=== PATIENT | female | born 1990 | race Hispanic/Latino ===

== ENCOUNTER 2017-01-18 12:57 | Emergency (ER) | payer MEDICAID ==
[2017-01-18 12:58] VITALS: BMI 33.6
[2017-01-18 13:06] VITALS: BP 103/61; PULSE 83; RESP 16; TEMP 97.4; O2SAT 100
--- NOTE | 2017-01-18 13:28 | ED PDOC ---
HPI: Female Pain Time Seen by Provider: 01/18/17 13:05 Chief Complaint (Nursing): Female Genitourinary Chief Complaint (Provider): Female Genitourinary History Per: Patient History/Exam Limitations: no limitations Onset/Duration Of Symptoms: Days (x1 day) Current Symptoms Are (Timing): Still Present Additional Complaint(s): 26 y/o female who presents to the emergency department with no physical complaint but states she was out drinking and decided to insert a tampon; currently on menstrual cycle. Reports waking up this morning and unable to remember if it still inserted or not. Denies vaginal, abdominal or pelvic pain. Has vaginal bleeding mild but on her period. No back pain, dysuria. No back pain. Past Medical History Reviewed: Historical Data, Nursing Documentation, Vital Signs Vital Signs: Last Vital Signs Temp 97.4 F L 01/18/17 13:02 Pulse 83 01/18/17 13:02 Resp 16 01/18/17 13:02 BP 103/61 01/18/17 13:02 Pulse Ox 100 01/18/17 13:02 - Medical History PMH: Asthma - Surgical History Surgical History: No Surg Hx - Family History Family History: States: Unknown Family Hx - Living Arrangements Living Arrangements: With Family - Social History Current smoker - smoking cessation education provided: No Alcohol: None Drugs: Denies - Immunization History Hx Tetanus Toxoid Vaccination: No Hx Influenza Vaccination: No Hx Pneumococcal Vaccination: No - Home Medications Home Medications: Ambulatory Orders Medication Instructions Recorded DiphenhydrAMINE [Benadryl] 25 mg PO Q6H PRN #15 cap 05/06/15 Mupirocin 1 appl TP BID #22 g 05/06/15 Birthcontrol Pills 1 tab PO DAILY 07/21/16 Famotidine [Pepcid] 20 mg PO DAILY #14 tab 07/21/16 Pantoprazole [Protonix] 40 mg PO DAILY #30 ect 12/29/16 - Allergies Allergies/Adverse Reactions: Allergies Allergy/AdvReac Type Severity Reaction Status Date / Time No Known Allergies Allergy Verified 01/18/17 13:02 Review of Systems Constitutional: Negative for: Weakness Cardiovascular: Negative for: Chest Pain Respiratory: Negative for: Shortness of Breath Gastrointestinal: Negative for: Abdominal Pain Genitourinary Female: Positive for: Vaginal Bleeding. Negative for: Vaginal Discharge, Pelvic Pain, Other (Vaginal pain) Neurological: Negative for: Weakness Physical Exam - Reviewed Nursing Documentation Reviewed: Yes Vital Signs Reviewed: Yes - Physical Exam Appears: Positive for: Non-toxic, No Acute Distress Head Exam: Positive for: ATRAUMATIC, NORMOCEPHALIC Skin: Positive for: Normal Color, Warm, Dry Cardiovascular/Chest: Positive for: Regular Rate, Rhythm. Negative for: Murmur Respiratory: Positive for: Normal Breath Sounds. Negative for: Accessory Muscle Use, Respiratory Distress Gastrointestinal/Abdominal: Positive for: Soft. Negative for: Tenderness Pelvic Exam: Positive for: External Exam Normal (pelvic exam done in presence of nurse Concepcion), No Cerv. Motion Tender, Active Bleeding (Due to present menstrual cycle), Other (no foreign body; no dc; no pain to cervix on touch) Back: Positive for: Normal Inspection. Negative for: L CVA Tenderness, R CVA Tenderness Neurologic/Psych: Positive for: Alert, Oriented - ECG O2 Sat by Pulse Oximetry: 100 (RA) Pulse Ox Interpretation: Normal - Progress ED Course And Treament: 1337: Stable. No foreign body. Fu with pcp. Medical Decision Making Medical Decision Making: Time: 13:05 --Negative vagina manual exam: no foreign bodies; does show bleeding but is on her period. Scribe Attestation: Documented by Angely Mckeon, acting as a scribe for Yousuf Guillaume MD. Provider Scribe Attestation: All medical record entries made by the Scribe were at my direction and personally dictated by me. I have reviewed the chart and agree that the record accurately reflects my personal performance of the history, physical exam, medical decision making, and the department course for this patient. I have also personally directed, reviewed, and agree with the discharge instructions and disposition. Disposition - Clinical Impression Clinical Impression: Normal menstrual period, Vaginal foreign body - Patient ED Disposition Is Patient to be Admitted: No Counseled Patient/Family Regarding: Diagnosis, Need For Followup - Disposition [facility] - 01/19/17 Disposition: Routine/Home Disposition Time: 13:38 Condition: STABLE Additional Instructions: Regular if not better in 3 days. Instructions: Menstruation (ED)
== END 2017-01-18 13:45 | disposition home or self-care (01) ==
LOC: H.ER 12:57
DX: T19.2XXA Foreign body in vulva and vagina, initial encounter (principal)

== ENCOUNTER 2017-03-19 13:43 | Emergency (ER) | payer MEDICAID, OTHER ==
--- NOTE | 2017-03-20 09:28 | RAD ---
PROCEDURE: Left elbow HISTORY: Trauma COMPARISON: March 19, 2017. TECHNIQUE: Standard protocol for this study/examination. FINDINGS: Unremarkable distal humerus, olecranon/ulna and radius -radial head. IMPRESSION: No acute findings related to/accounting for the clinical presentation.
--- NOTE | 2017-03-20 09:28 | RAD ---
PROCEDURE: Bilateral hand HISTORY: Trauma COMPARISON: None TECHNIQUE: Standard protocol for this study/examination. FINDINGS: No significant/acute osseous, articular or soft tissue abnormalities. IMPRESSION: No acute findings related to/accounting for the clinical presentation.
--- NOTE | 2017-03-20 09:28 | RAD ---
PROCEDURE: Right wrist HISTORY: Trauma COMPARISON: March 19, 2017. TECHNIQUE: Standard protocol for this study/examination. FINDINGS: No significant/acute osseous, articular or soft tissue abnormalities. IMPRESSION: No acute findings related to/accounting for the clinical presentation.
--- NOTE | 2017-03-20 14:15 | CT ---
PROCEDURE: CT Cervical Spine without contrast HISTORY: <> COMPARISON: None available. TECHNIQUE: Axial computed tomography images were obtained of the cervical spine without the use of intravenous contrast. Coronal and sagittal reformatted images were created and reviewed. Radiation dose: Total exam DLP = 457.88 mGy-cm. This CT exam was performed using one or more of the following dose reduction techniques: Automated exposure control, adjustment of the mA and/or kV according to patient size, and/or use of iterative reconstruction technique. FINDINGS: VERTEBRAE: No fracture. Normal alignment. No destructive bony lesion. DISCS/SPINAL CANAL/NEURAL FORAMINA: No significant central canal or neural foraminal stenosis. Discs heights are grossly preserved. PARASPINAL SOFT TISSUES: Unremarkable. OTHER FINDINGS: None. IMPRESSION: No significant or acute findings to account for/ related to the clinical presentation.
--- NOTE | 2017-03-20 14:15 | CT ---
PROCEDURE: CT HEAD WITHOUT CONTRAST. HISTORY: Trauma. COMPARISON: None available. TECHNIQUE: Axial computed tomography images were obtained through the head/brain without intravenous contrast. Coronal and sagittal reconstructed images. Radiation dose: Total exam DLP = 870.39 mGy-cm. This CT exam was performed using one or more of the following dose reduction techniques: Automated exposure control, adjustment of the mA and/or kV according to patient size, and/or use of iterative reconstruction technique. FINDINGS: HEMORRHAGE: No intracranial hemorrhage. BRAIN: No mass effect or edema. No atrophy or chronic microvascular ischemic changes. VENTRICLES: Unremarkable. No hydrocephalus. CALVARIUM: Unremarkable. PARANASAL SINUSES: Unremarkable as visualized. No significant inflammatory changes. MASTOID AIR CELLS: Unremarkable as visualized. No inflammatory changes. OTHER FINDINGS: None. IMPRESSION: No acute intracranial abnormalities. No significant findings to account for the clinical presentation.
== END 2017-03-19 18:00 | disposition home or self-care (01) ==
LOC: H.EDERROR 13:43 → H.ER 13:43 → H.EDERROR 18:00
DX: T14.8 Other injury of unspecified body region (principal); V19.3XXA Pedal cyclist (driver) (passenger) injured in unspecified nontraffic accident, initial encounter; Y93.9 Activity, unspecified

== ENCOUNTER 2017-04-01 10:03 | Emergency (ER) | payer OTHER ==
[2017-04-01 10:03] VITALS: BMI 33.6
[2017-04-01] MEDS ORDERED: Naproxen 500 MG TAB PO ONE ×2 (10:48→10:53)
--- NOTE | 2017-04-01 11:33 | ED PDOC ---
Lower Extremity Pain/Injury Time Seen by Provider: 04/01/17 10:15 Chief Complaint (Nursing): Lower Extremity Problem/Injury Chief Complaint (Provider): Lower Extremity Problem/Injury History Per: Patient History/Exam Limitations: no limitations Onset/Duration Of Symptoms: Hrs Current Symptoms Are (Timing): Still Present Severity: Mild Additional Complaint(s): 27 y/o female patient presenting to the ED with a swollen ankle. PT states that last night she stepped on wood and felt her ankle turn. She took Tramadol for the pain because she had some left over from a prior hospital visit. Today she PT states she is currently on no medications. PT states that over the holiday weekend she had 6 beers on thursday and 6 beers on sundays and a "couple of shots" and that she only smokes and drinks on the weekend. - Ankle/Foot Description Of Injury: Twisted (LEFT ANKLE) Currently Unable To: Bear Weight - Risk Factors DVT Risk Factors: Pos: None Past Medical History Reviewed: Historical Data, Nursing Documentation, Vital Signs Vital Signs: Last Vital Signs Temp Pulse Resp BP Pulse Ox 98 04/01/17 10:11 - Medical History PMH: Anemia, Asthma - Surgical History Surgical History: No Surg Hx - Family History Family History: States: Unknown Family Hx - Living Arrangements Living Arrangements: With Family - Social History Current smoker - smoking cessation education provided: Yes (Smokes on Weekends) Alcohol: Social (Drinks on Weekends) - Immunization History Hx Tetanus Toxoid Vaccination: No Hx Influenza Vaccination: No Hx Pneumococcal Vaccination: No - Home Medications Home Medications: Ambulatory Orders Medication Instructions Recorded DiphenhydrAMINE [Benadryl] 25 mg PO Q6H PRN #15 cap 05/06/15 Mupirocin 1 appl TP BID #22 g 05/06/15 Birthcontrol Pills 1 tab PO DAILY 07/21/16 Famotidine [Pepcid] 20 mg PO DAILY #14 tab 07/21/16 Pantoprazole [Protonix] 40 mg PO DAILY #30 ect 12/29/16 Naproxen [Naprosyn] 500 mg PO BID PRN #20 tablet 04/01/17 - Allergies Allergies/Adverse Reactions: Allergies Allergy/AdvReac Type Severity Reaction Status Date / Time No Known Allergies Allergy Verified 01/18/17 13:02 Review of Systems ROS Statement: Except As Marked, All Systems Reviewed And Found Negative Constitutional: Negative for: Fever, Weakness Cardiovascular: Negative for: Chest Pain Respiratory: Negative for: Shortness of Breath Musculoskeletal: Negative for: Foot Pain (Twisted left ankle) Neurological: Negative for: Weakness, Dizziness Physical Exam - Reviewed Nursing Documentation Reviewed: Yes Vital Signs Reviewed: Yes - Physical Exam Appears: Positive for: Non-toxic, No Acute Distress Skin: Positive for: Normal Color, Warm Cardiovascular/Chest: Positive for: Regular Rate, Rhythm. Negative for: Murmur Respiratory: Positive for: Normal Breath Sounds. Negative for: Respiratory Distress Extremity: Positive for: Normal ROM, Tenderness (Left ankle: (+) Severe Lateral Tenderness, Bruising, swelling). Negative for: Calf Tenderness, Deformity Neurologic/Psych: Positive for: Alert, Oriented. Negative for: Motor/Sensory Deficits - ECG O2 Sat by Pulse Oximetry: 98 (RA) Pulse Ox Interpretation: Normal Medical Decision Making Medical Decision Making: Time: 1040 Initial impression: Left Ankle Pain and Swelling Initial plan: --ED URINE --FOOT AP LAT LT --ACETAMINOPHEN 650MG --NAPROXEN 500MG --ANKLE LEFT 3 VIEWS Scribe Attestation: Documented by Sheila Ortega training under Coni Cox acting as a scribe for Seble Gregorio MD. Provider Scribe Attestation: All medical record entries made by the Scribe were at my direction and personally dictated by me. I have reviewed the chart and agree that the record accurately reflects my personal performance of the history, physical exam, medical decision making, and the department course for this patient. I have also personally directed, reviewed, and agree with the discharge instructions and disposition. Disposition - Clinical Impression Clinical Impression: Left ankle sprain - Patient ED Disposition Is Patient to be Admitted: No Doctor Will See Patient In The: Office Counseled Patient/Family Regarding: Diagnosis, Need For Followup, Rx Given - Disposition Referrals: [facility] [Outside] [facility] [Outside] Disposition: Routine/Home Disposition Time: 14:18 Condition: STABLE Prescriptions: Naproxen [Naprosyn] 500 mg PO BID PRN #20 tablet PRN Reason: Pain, Moderate (4-7) Instructions: Ankle Sprain (ED) - POA Present On Arrival: Falls Or Trauma
--- NOTE | 2017-04-01 14:28 | RAD ---
PROCEDURE: Left Foot Radiographs. HISTORY: sprain last night COMPARISON: None. FINDINGS: BONES: Normal. No fracture. JOINTS: Normal. SOFT TISSUES: Normal. OTHER FINDINGS: None. IMPRESSION: No acute findings related to/accounting for the clinical presentation.
--- NOTE | 2017-04-01 14:29 | RAD ---
PROCEDURE: Left Ankle Radiographs. HISTORY: sprain last night COMPARISON: None FINDINGS: BONES: No acute fracture. JOINTS: Normal. No osteoarthritis. Ankle mortise maintained. Talar dome intact SOFT TISSUES: Lateral soft tissue swelling without distal fibular or talar abnormality. OTHER FINDINGS: None. IMPRESSION: Soft tissue swelling without acute articular or osseous abnormality.
[2017-04-01 14:33] VITALS: BP 122/65; PULSE 82; RESP 14; O2SAT 100
== END 2017-04-01 14:31 | disposition home or self-care (01) ==
LOC: H.ER 10:03
DX: S93.402A Sprain of unspecified ligament of left ankle, initial encounter (principal); X50.9XXA Other and unspecified overexertion or strenuous movements or postures, initial encounter; Y92.89 Other specified places as the place of occurrence of the external cause; F17.200 Nicotine dependence, unspecified, uncomplicated; J45.909 Unspecified asthma, uncomplicated

== ENCOUNTER 2017-07-27 18:55 | Emergency (ER) | payer OTHER ==
[2017-07-27 18:55] VITALS: BMI 33.6
[2017-07-27 19:14] VITALS: BP 114/76; PULSE 83; RESP 18; TEMP 98.5; O2SAT 100
[2017-07-27] MEDS ORDERED: DiphenhydrAMINE 50 mg/ml Inj IVP STA (20:51)
--- NOTE | 2017-07-27 20:54 | ED PDOC ---
HPI: Headache Time Seen by Provider: 07/27/17 20:26 Chief Complaint (Nursing): Headache Chief Complaint (Provider): headache History Per: Patient History/Exam Limitations: no limitations Onset/Duration Of Symptoms: Days (3), Intermittent Episodes, Sudden Onset Quality: Squeezing, "Pain" Associated Symptoms: Nausea. denies: Photophobia, Blurred Vision, Vomiting, Extremity Weakness Additional Complaint(s): Sudden onset headache RIGHT sided while at rest 9am Thursday, took tramadol with some relief but recurred yesterday and then again today. Took tylenol yesterday and excedrin today. Developed severe RIGHT neck pain today as well. Has phonophobia. No fever. No recent illnesses or increased stress. PMD Dr Rousseau Past Medical History Reviewed: Historical Data, Nursing Documentation, Vital Signs Vital Signs: Last Vital Signs Temp 98.5 F 07/27/17 19:10 Pulse 83 07/27/17 19:10 Resp 18 07/27/17 19:10 BP 114/76 07/27/17 19:10 Pulse Ox 100 07/27/17 19:10 - Medical History PMH: Anemia, Asthma - Surgical History Surgical History: Tonsillectomy Other surgeries: RIGHT knee - Family History Family History: States: Other Other Family History: Cancer - Social History Current smoker - smoking cessation education provided: Yes Alcohol: Occasional Drugs: Denies - Immunization History Hx Tetanus Toxoid Vaccination: No Hx Influenza Vaccination: No Hx Pneumococcal Vaccination: No - Home Medications Home Medications: Ambulatory Orders Medication Instructions Recorded DiphenhydrAMINE [Benadryl] 25 mg PO Q6H PRN #15 cap 05/06/15 Mupirocin 1 appl TP BID #22 g 05/06/15 Birthcontrol Pills 1 tab PO DAILY 07/21/16 Famotidine [Pepcid] 20 mg PO DAILY #14 tab 07/21/16 Pantoprazole [Protonix] 40 mg PO DAILY #30 ect 12/29/16 Naproxen [Naprosyn] 500 mg PO BID PRN #20 tablet 04/01/17 Metoclopramide [Reglan] 1 tab PO TID PRN #15 tab 07/28/17 Naproxen [Naprosyn] 1 tab PO BID PRN #30 tab 07/28/17 - Allergies Allergies/Adverse Reactions: Allergies Allergy/AdvReac Type Severity Reaction Status Date / Time No Known Allergies Allergy Verified 01/18/17 13:02 Review of Systems ROS Statement: Except As Marked, All Systems Reviewed And Found Negative (and as per HPI) Constitutional: Positive for: Weakness, Malaise. Negative for: Fever, Chills Eyes: Negative for: Vision Change Cardiovascular: Positive for: Light Headedness Gastrointestinal: Positive for: Nausea. Negative for: Vomiting, Abdominal Pain Musculoskeletal: Positive for: Neck Pain. Negative for: Shoulder Pain Neurological: Positive for: Headache, Dizziness Physical Exam - Physical Exam Appears: Positive for: Non-toxic, In Acute Distress (mild painful) Head Exam: Positive for: ATRAUMATIC, NORMOCEPHALIC Skin: Positive for: Warm, Dry Eye Exam: Positive for: EOMI, PERRL. Negative for: Nystagmus ENT: Negative for: Pharyngeal Erythema, Tonsillar Exudate Neck: Positive for: Supple (no meningismus but has RIGHT sided paraspinal/ trapezoid ttp) Cardiovascular/Chest: Positive for: Regular Rate, Rhythm, Chest Non Tender. Negative for: Murmur Respiratory: Positive for: Normal Breath Sounds. Negative for: Wheezing Gastrointestinal/Abdominal: Positive for: Soft. Negative for: Tenderness, Mass , Distended, Guarding Back: Positive for: Normal Inspection. Negative for: Decreased ROM Extremity: Positive for: Normal ROM. Negative for: Deformity Lymphatic: Negative for: Adenopathy Neurologic/Psych: Positive for: Alert, health information tech II-XII (intact), Oriented (x3), Cerebellar Tests (normal). Negative for: Motor/Sensory Deficits, Aphasia, Facial Droop - Laboratory Results Result Diagrams: 07/27/17 21:38 07/27/17 21:38 - ECG O2 Sat by Pulse Oximetry: 100 Pulse Ox Interpretation: Normal Medical Decision Making Medical Decision Making: EXAM: CT Head Without Intravenous Contrast CLINICAL HISTORY: 27 years old, female; Pain; Headache; Other: Right sided headache, ; additional info: Headache nausea right sided. Sent phy. Doc. TECHNIQUE: Axial computed tomography images of the head/brain without intravenous contrast. All CT scans at this facility use one or more dose reduction techniques, viz.: automated exposure control; ma/kV adjustment per patient size (including targeted exams where dose is matched to indication; i.e. head); or iterative reconstruction technique. Coronal and sagittal reformatted images were created and reviewed. COMPARISON: No relevant prior studies available. FINDINGS: Brain: No intracranial hemorrhage. No mass. No definite edema. Ventricles: No hydrocephalus. Bones/joints: No acute fracture. Soft tissues: Unremarkable. Sinuses: Scattered mild mucosal thickening of ethmoid sinuses. Mastoid air cells: No mastoid effusion. Orbits: Unremarkable as visualized. IMPRESSION: 1. No acute intracranial abnormality. 2. Incidental/non-acute findings are described above. Thank you for allowing us to participate in the care of your patient. Dictated and Authenticated by: Brody Núñez MD 07/27/2017 10:01 PM Eastern Time ([place] & [place]) [facility] Final Radiology Report Call: [phone] assistance Online chat: [email or web address] Patient Name: MARTHA MOSQUEDA (Age): 1990 27 Gender: F Date of Exam: 07/27/2017 Referring Physician: Sabiha Castillo # of Images: [id number] Ordered As: CTA HEAD NECK BUNDLE Page 1 of 3 EXAM: CT Angiography Head Without and With Intravenous Contrast CLINICAL HISTORY: 27 years old, female; Pain; Headache; Additional info: Headache severe with neck pain TECHNIQUE: Axial computed tomographic angiography images of the head without and with intravenous contrast using CT angiography protocol. All CT scans at this facility use one or more dose reduction techniques, viz.: automated exposure control; ma/kV adjustment per patient size (including targeted exams where dose is matched to indication; i.e. head); or iterative reconstruction technique. MIP reconstructed images were created and reviewed. Coronal and sagittal reformatted images were created and reviewed. CONTRAST: 95 mL of visipqae administered intravenously. COMPARISON: No relevant prior studies available. FINDINGS: VASCULATURE: Right internal carotid artery: No acute findings. Intracranial segment is patent with no significant stenosis. No aneurysm. Right anterior cerebral artery: Unremarkable. No occlusion or significant stenosis. No aneurysm. Right middle cerebral artery: Unremarkable. No occlusion or significant stenosis. No aneurysm. Right posterior cerebral artery: Unremarkable. No occlusion or significant stenosis. No aneurysm. Right vertebral artery: Unremarkable as visualized. Left internal carotid artery: No acute findings. Intracranial segment is patent with no significant stenosis. No aneurysm. Left anterior cerebral artery: Unremarkable. No occlusion or significant stenosis. No aneurysm. Left middle cerebral artery: Unremarkable. No occlusion or significant stenosis. No aneurysm. Left posterior cerebral artery: Unremarkable. No occlusion or significant stenosis. No aneurysm. Left vertebral artery: Unremarkable as visualized. Basilar artery: Unremarkable. No occlusion or significant stenosis. No aneurysm. HEAD: Brain: No acute findings. No hemorrhage. No edema. Normal enhancement. Ventricles: Unremarkable. No ventriculomegaly. Bones/joints: No acute fracture. Soft tissues: Unremarkable. Sinuses: Unremarkable as visualized. No acute sinusitis. Mastoid air cells: Unremarkable as visualized. No mastoid effusion. IMPRESSION: Normal head CTA. EXAM: CT Angiography Neck With Intravenous Contrast CLINICAL HISTORY: 27 years old, female; Pain; Headache; Additional info: Headache severe with neck pain TECHNIQUE: Axial computed tomographic angiography images of the neck with intravenous contrast using CT angiography protocol. All CT scans at this facility use one or more dose reduction techniques, viz.: automated exposure control; ma/kV adjustment per patient size (including targeted exams where dose is matched to indication; i.e. head); or iterative reconstruction technique. MIP reconstructed images were created and reviewed. Coronal and sagittal reformatted images were created and reviewed. CONTRAST: 95 mL of visipqae administered intravenously. COMPARISON: CT - HEAD W/O CONTRAST 07/27/2017 9:47:15 PM FINDINGS: VASCULATURE: Right common carotid artery: Unremarkable. No significant stenosis. No dissection or occlusion. Right internal carotid artery: Unremarkable. Extracranial segment is patent with no significant stenosis. No dissection or occlusion. Right external carotid artery: Unremarkable. No occlusion. Right vertebral artery: Unremarkable. No significant stenosis. No dissection or occlusion. Left common carotid artery: Unremarkable. No significant stenosis. No dissection or occlusion. Left internal carotid artery: Unremarkable. Extracranial segment is patent with no significant stenosis. No dissection or occlusion. Left external carotid artery: Unremarkable. No occlusion. Left vertebral artery: Unremarkable. No significant stenosis. No dissection or occlusion. NECK: Bones/joints: No acute fracture. No dislocation. Soft tissues: Unremarkable as visualized. No mass. CAROTID STENOSIS REFERENCE USING NASCET CRITERIA: % ICA stenosis = (1 - narrowest ICA diameter/diameter of distal cervical ICA) x 100. Mild - <50% stenosis. Moderate - 50-69% stenosis. Severe - 70-94% stenosis. Near occlusion - 95-99% stenosis. Occluded - 100% stenosis. IMPRESSION: Normal neck CTA. Thank you for allowing us to participate in the care of your patient. Dictated and Authenticated by: Martha Cash MD 07/28/2017 12:01 AM Eastern Time ([place] & [place]) 12am Pt feels better s/p meds Headache workup with no emergently significant abnormalities. Stable for outpatient follow up. Scribe Attestation: Documented by Judy Barnes, acting as a scribe for *Sabiha Castillo MD. Provider Scribe Attestation: All medical record entries made by the Scribe were at my direction and personally dictated by me. I have reviewed the chart and agree that the record accurately reflects my personal performance of the history, physical exam, medical decision making, and the department course for this patient. I have also personally directed, reviewed, and agree with the discharge instructions and disposition. Disposition - Clinical Impression Clinical Impression: Headache - Disposition Referrals: Anival Geurin MD [Staff Provider] - Disposition: Routine/Home Disposition Time: 00:00 Condition: IMPROVED Additional Instructions: FOLLOW UP WITH PMD IN 1-2 DAYS FOR REEVALUATION AND REFERRAL FOR NEUROLOGIST. Prescriptions: Metoclopramide [Reglan] 1 tab PO TID PRN #15 tab PRN Reason: Nausea/Vomiting Naproxen [Naprosyn] 1 tab PO BID PRN #30 tab PRN Reason: Pain Instructions: General Headache (ED) Forms: [facility] ED School/Work Excuse
[2017-07-27 21:50] LABS: BASO % 0.3 % (0.0-2.0); EOS # 0.4 K/uL (0.0-0.7); EOS % 4.2 % (0.0-4.0); HEMATOCRIT 37.5 % (34.0-47.0); LYMPH # 3.4 K/uL (1.0-4.3); LYMPH % 38.5 % (20.0-40.0); MEAN CELL VOLUME 87.1 fl (81.0-99.0); MEAN CORPUSCULAR HEMOGLOBIN 28.7 pg (27.0-31.0); MEAN PLATELET VOLUME 9.7 fl (7.2-11.7); MONO # 0.6 K/uL (0.0-0.8); NEUT # 4.5 K/uL (1.8-7.0); NRBC % 0.1 % (0.0-0.0); RED CELL DISTRIBUTION WIDTH 13.8 % (11.5-14.5); WHITE BLOOD COUNT 8.9 K/uL (4.8-10.8)
[2017-07-27 21:57] LABS: PARTIAL THROMBOPLASTIN TIME 24.4 Seconds (25.6-37.1)
[2017-07-27 22:00] LABS: ALB/GLOB RATIO 1.4 (1.0-2.1); ALKALINE PHOSPHATASE 51 U/L (38-126); ALT/SGPT 26 U/L (9-52); AST/SGOT 24 U/L (14-36); BILIRUBIN,TOTAL 0.4 mg/dl (0.2-1.3); BLOOD UREA NITROGEN 16 mg/dl (7-17); CALCIUM 8.9 mg/dL (8.4-10.2); CARBON DIOXIDE 23 mmol/L (22-30); CHLORIDE 103 mmol/L (98-107); GFR AFRICAN-AMERICAN > 60; GLUCOSE,RANDOM 98 mg/dL (65-105); MAGNESIUM 1.9 MG/DL (1.6-2.3); PHOSPHOROUS 3.8 mg/dl (2.5-4.5); POTASSIUM 4.2 MMOL/L (3.6-5.0); SODIUM 139 mmol/l (132-148); TOTAL PROTEIN 6.8 G/DL (6.3-8.2)
--- NOTE | 2017-07-27 22:02 | CT ---
EXAM: CT Head Without Intravenous Contrast CLINICAL HISTORY: 27 years old, female; Pain; Headache; Other: Right sided headache, ; additional info: Headache nausea right sided. Sent phy. Doc. TECHNIQUE: Axial computed tomography images of the head/brain without intravenous contrast. All CT scans at this facility use one or more dose reduction techniques, viz.: automated exposure control; ma/kV adjustment per patient size (including targeted exams where dose is matched to indication; i.e. head); or iterative reconstruction technique. Coronal and sagittal reformatted images were created and reviewed. COMPARISON: No relevant prior studies available. FINDINGS: Brain: No intracranial hemorrhage. No mass. No definite edema. Ventricles: No hydrocephalus. Bones/joints: No acute fracture. Soft tissues: Unremarkable. Sinuses: Scattered mild mucosal thickening of ethmoid sinuses. Mastoid air cells: No mastoid effusion. Orbits: Unremarkable as visualized. IMPRESSION: 1. No acute intracranial abnormality. 2. Incidental/non-acute findings are described above.
[2017-07-27] MEDS ORDERED: DiphenhydrAMINE 50 mg/ml Inj ONE (22:27)
[2017-07-27] MEDS ORDERED: Sodium Chloride 0.9% 50 ML IV ONE (23:04)
[2017-07-27] MEDS ORDERED: Iodixanol 320 MG/ML 100 ML BOTTLE IV ONE (23:04)
--- NOTE | 2017-07-28 08:41 | CT ---
PROCEDURE: CT Angiography of the HEAD and NECK with contrast HISTORY: headache severe with neck pain COMPARISON: None available. TECHNIQUE: Contiguous axial images of the neck were obtained from the level of the skull-base to the superior mediastinum in the arteriographic phase of enhancement. Coronal and sagittal reformats or also generated. IV contrast dose: Visipaque 320, 195 cc Radiation Dose - DLP: 2120.11 mGy-cm This CT exam was performed using one or more of the following dose reduction techniques: Automated exposure control, adjustment of the mA and/or kV according to patient size, and/or use of iterative reconstruction technique. FINDINGS: MAJOR INTRACRANIAL ARTERIAL CIRCULATION: INTERNAL CEREBRAL INTERNAL CEREBRAL ARTERIES: The bilateral internal carotid arteries appear widely patent through the skullbase including the cavernous segments. The intracranial segments appear widely patent as well. The bilateral mid anterior, middle and posterior cerebral arteries appear widely patent including the primary secondary and tertiary branches including those through the Sylvian fissures grossly. The anterior and bilateral posterior communicating arteries are patent. The vertebrobasilar basilar system appears widely patent and appears left vertebral dominant. No aneurysm or arteriovascular malformation is identified throughout. RIGHT CAROTID ARTERIES: Common Carotid Artery: Normal. Carotid Bifurcation: Normal. Internal Carotid Artery:Normal. External Carotid Artery (proximal branches): Normal. LEFT CAROTID ARTERIES: Common Carotid Artery: Normal. Carotid Bifurcation: Normal. Internal Carotid Artery:Normal. External Carotid Artery (proximal branches): Normal. VERTEBRAL ARTERIES: Right Vertebral Artery: Normal. Left Vertebral Artery: Normal. OTHER FINDINGS: None. IMPRESSION: Normal CT Angiography of the head and neck. Concordant report from [facility], 07/28/2017.
== END 2017-07-28 00:20 | disposition home or self-care (01) ==
LOC: H.ER 18:55
DX: R51 Headache (principal); R11.0 Nausea
CPT/HCPCS: 70450; 70496; 70498; 80053; 81025; 83735; 84100; 85025; 85610; 85730; 86850; 86900; 96374; 96375; 99285; J1200; J2765; Q9967

== ENCOUNTER 2018-05-04 16:04 | Inpatient (IN) | payer MEDICAID, OTHER ==
[2018-05-04 16:04] VITALS: BMI 33.6
[2018-05-04] MEDS ORDERED: Sodium Chloride 0.9% 1,000 ML IV STA (16:41)
[2018-05-04] MEDS ORDERED: Morphine 4 MG/ML VIAL IV STA (16:54)
[2018-05-04 17:19] LABS: BASO % 0.3 % (0.0-2.0); EOS # 0.2 K/uL (0.0-0.7); EOS % 1.3 % (0.0-4.0); LYMPH # 2.1 K/uL (1.0-4.3); LYMPH % 17.8 % (20.0-40.0); MEAN CELL VOLUME 82.1 fl (81.0-99.0); MEAN CORPUSCULAR HEMOGLOBIN 26.7 pg (27.0-31.0); MEAN CORPUSCULAR HGB CONC 32.6 g/dL (33.0-37.0); MEAN PLATELET VOLUME 11.7 fl (7.2-11.7); MONO # 1.1 K/uL (0.0-0.8); MONO % 8.8 % (0.0-10.0); NEUT # 8.6 K/uL (1.8-7.0); NEUT % 71.8 % (50.0-75.0); NRBC % 0.1 % (0.0-0.0); RBC 4.48 Mil/uL (3.80-5.20); RED CELL DISTRIBUTION WIDTH 14.1 % (11.5-14.5)
[2018-05-04] MEDS ORDERED: Barium Sulfate Susp 2.1% w/v, 2.0% w/w 450 mL Bottle PO ONE ×3 (17:30→17:54)
[2018-05-04 17:33] LABS: ALB/GLOB RATIO 1.2 (1.0-2.1); ALT/SGPT 96 U/L (9-52); AST/SGOT 101 U/L (14-36); BLOOD UREA NITROGEN 12 mg/dl (7-17); CALCIUM 9.2 mg/dL (8.4-10.2); GFR AFRICAN-AMERICAN > 60; GFR NON-AFRICAN AMERICAN > 60; LIPASE 233 U/L (23-300)
--- NOTE | 2018-05-04 19:35 | ED PDOC ---
HPI: Abdomen Time Seen by Provider: 05/04/18 16:25 Chief Complaint (Nursing): Abdominal Pain Chief Complaint (Provider): LUQ pain x 4 hours History Per: Patient History/Exam Limitations: no limitations Onset/Duration Of Symptoms: Hrs Outside of [place] travel?: No Current Symptoms Are (Timing): Still Present Severity: Severe Pain Scale Rating Of: 10 Location Of Pain/Discomfort: LUQ Quality Of Discomfort: Sharp Associated Symptoms: Nausea, Loss Of Appetite. denies: Fever, Chills, Vomiting , Diarrhea, Constipation, Urinary Symptoms Exacerbating Factors: None Alleviating Factors: None Additional Complaint(s): 28 yo female with history of gastric sleeve on 04/20/18 presents with LUQ pain for 4 hours. Pt states she was no longer having pain from the surgery and began having dull pain this morning. PT states the pain became worse. Pt had surgery in [facility]. PT states she called her doctor and was told to go to the same hospital for evaluation but [place] Pt states that she did see her surgeon 4 days ago for post-op appointment. Past Medical History Vital Signs: Last Vital Signs Temp 99.2 F 05/04/18 16:14 Pulse 96 H 05/04/18 16:14 Resp 16 05/04/18 16:14 BP 132/71 05/04/18 16:14 Pulse Ox 98 05/04/18 19:35 - Medical History PMH: Anemia, Anxiety, Asthma - Surgical History Surgical History: Tonsillectomy - Family History Family History: States: Unknown Family Hx - Immunization History Hx Tetanus Toxoid Vaccination: No Hx Influenza Vaccination: No Hx Pneumococcal Vaccination: No - Home Medications Home Medications: Ambulatory Orders Medication Instructions Recorded Birthcontrol Pills 1 tab PO DAILY 07/21/16 Azithromycin [Zithromax] 250 mg PO DAILY #4 tab 01/29/18 - Allergies Allergies/Adverse Reactions: Allergies Allergy/AdvReac Type Severity Reaction Status Date / Time Iodinated Contrast- Oral and Allergy RASH Verified 05/04/18 16:18 IV Dye - Laboratory Results Result Diagrams: 05/04/18 17:15 05/04/18 17:15 - ECG O2 Sat by Pulse Oximetry: 98 Medical Decision Making Medical Decision Making: slight elevation of WBC. Urine normal. Endorse pending CT of the abd/pelvis. Disposition - Clinical Impression Clinical Impression: Abdominal pain - Patient ED Disposition Is Patient to be Admitted: Transfer of Care - Disposition Disposition: Transfer of Care Disposition Time: 20:09 Condition: STABLE Forms: [employer] (Slovenian)
--- NOTE | 2018-05-04 21:24 | ED PDOC ---
- Laboratory Results Result Diagrams: 05/04/18 17:15 05/04/18 17:15 - ECG O2 Sat by Pulse Oximetry: 98 Medical Decision Making Medical Decision Making: Case endorsed to me from SIMI Canela pending CT and disposition at 1999. CT A/P : FINDINGS: Lung bases: Unremarkable. No mass. No consolidation. ABDOMEN: Liver: Unremarkable. Gallbladder and bile ducts: Unremarkable. No calcified stones. No ductal dilation. Pancreas: Peripancreatic inflammatory in the pancreatic tail. No CT evidence of necrosis, pancreatic ductal dilation or walled off fluid collection. Spleen: Mild splenomegaly measures 13 cm. Adrenals: Unremarkable. No mass. Kidneys and ureters: Unremarkable. No obstructing stones. No hydronephrosis. Stomach and bowel: Sleeve gastrectomy. No obstruction. PELVIS: Appendix: No findings to suggest acute appendicitis. Bladder: Unremarkable. No stones. Reproductive: Unremarkable as visualized. ABDOMEN and PELVIS: Intraperitoneal space: Unremarkable. No free air. No significant fluid collection. Bones/joints: No acute fracture. No dislocation. Soft tissues: Unremarkable. Vasculature: Unremarkable. No abdominal aortic aneurysm. Lymph nodes: Unremarkable. No enlarged lymph nodes. IMPRESSION: 1. Acute pancreatitis of the pancreatic tail. 2. Mild splenomegaly measures 13 cm. Dictated and Authenticated by: Robbi Marie MD 05/04/2018 8:12 PM Eastern Time ([place] & Paul CT results d/w the patient. On re-evaluation, patient reports improvement of pain at this time, denies any nausea. On exam, patient remains AAOx3, in no acute distress. Diagnosis of acute pancreatitis d/w the patient. Based on history, exam and diagnostic results, plan will be for inpatient admission. Patient states she fully agrees with and understands further plan and care. I have given the patient opportunity to ask any additional questions. Case d/w Dr. Goodrich, will admit the patient. Request consult with GI talent acquisition program manager, Dr. Ríos. Bridge orders and consults placed. Disposition Counseled Patient/Family Regarding: Studies Performed, Diagnosis - Clinical Impression Clinical Impression: Abdominal pain, Acute pancreatitis - POA Present On Arrival: None - Disposition Disposition: Admitted as In-Patient Disposition Time: 21:15 Condition: STABLE - PA / LAND ECONOMIST / Resident Statement MD/DO has reviewed & agrees with the documentation as recorded.
[2018-05-04] MEDS ORDERED: Morphine 4 MG/ML VIAL IVP STA (22:38)
[2018-05-05 06:14] LABS: HEMOGLOBIN 10.7 g/dL (12.0-16.0); MEAN CELL VOLUME 80.5 fl (81.0-99.0); MEAN CORPUSCULAR HEMOGLOBIN 27.5 pg (27.0-31.0); MEAN CORPUSCULAR HGB CONC 34.2 g/dL (33.0-37.0); RBC 3.9 Mil/uL (3.80-5.20); RED CELL DISTRIBUTION WIDTH 13.8 % (11.5-14.5); WHITE BLOOD COUNT 7.8 K/uL (4.8-10.8)
[2018-05-05 06:20] LABS: INR 1.1 (0.9-1.2); PARTIAL THROMBOPLASTIN TIME 24.1 Seconds (25.6-37.1); PROTHROMBIN TIME 12.2 Seconds (9.8-13.1)
[2018-05-05 06:30] LABS: ALBUMIN 3.1 g/dL (3.5-5.0); ALT/SGPT 115 U/L (9-52); AMYLASE 59 U/L (30-110); AST/SGOT 110 U/L (14-36); BLOOD UREA NITROGEN 6 mg/dl (7-17); CALCIUM 8.2 mg/dL (8.4-10.2); GFR AFRICAN-AMERICAN > 60; GFR NON-AFRICAN AMERICAN > 60; HDL CHOLESTEROL 38 MG/DL (30-70); LIPASE 110 U/L (23-300)
[2018-05-05 06:35] LABS: LDL CHOLESTEROL 44 mg/dL (0-129)
--- NOTE | 2018-05-05 08:16 | CP.PCM.CON ---
<Joe Khan - Last Filed: 05/05/18 15:02> History of Present Illness - History of Present Illness History of Present Illness: PGY4 Initial GI Consult Note Martha Thompson is a 28F w/ hx of obesity s/p gastric sleeve (04/20/18) who presented to the Er with complaints of epigastic and LUQ pain. Pt states that the pain initially presented as B/L upper back pain,1 week prior. She notes that he was achy and was initially 5/10. She notes that the pain progressively worsen and then radiated to the front. She notes that prior to admission her pain was 10 out of 10. She called her bariatric RN who recommend acetomenophen. Pt denies any nausea or vomiting, but admits to worsening of pain after consuming protein shake. CT of the abd w/o IV contrast in the ER revealed some pancreatic inflammation in in the tail of the pancreas. She notes that her pain has improved overnight. Denies any hx of ETOH, TG, or gallstones. Denies any previous episodes of pancreatitis. PMHX: obesity PSHx: right knee MCL repair, lipoma back removed Social hx: denies ETOH, smoking, or illicit drug Family Hx: father colon cancer 43 Endohx: EGD 2018: no findings; colonoscopy 2017: internal hemorrhoids ROS: 12 point ROS conducted, neg other than above Past Patient History - Past Medical History & Family History Past Medical History?: Yes - Past Social History Smoking Status: Never Smoked - PULMONARY Hx Asthma: Yes - HEMATOLOGICAL/ONCOLOGICAL Hx Anemia: Yes - MUSCULOSKELETAL/RHEUMATOLOGICAL Hx Musculoskeletal Disorders: Yes (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 [facility] Dr. Aram Lopez - PSYCHIATRIC Hx Anxiety: Yes Hx Substance Use: No - SURGICAL HISTORY Hx Surgeries: Yes Hx Tonsillectomy: Yes - ANESTHESIA Hx Anesthesia: Yes Hx Anesthesia Reactions: No Hx Malignant Hyperthermia: No Meds Allergies/Adverse Reactions: Allergies Allergy/AdvReac Type Severity Reaction Status Date / Time Iodinated Contrast- Oral and Allergy RASH Verified 05/04/18 16:18 IV Dye - Medications Medications: Current Medications Dextrose/Sodium Chloride (Dextrose 5%/0.45% Ns 1000 Ml) 1,000 mls @ 100 mls/hr IV .Q10H [facility] Stop: 05/05/18 23:19 Last Admin: 05/05/18 00:00 Dose: 100 mls/hr Morphine Sulfate (Morphine) 2 mg IVP Q4 PRN PRN Reason: Pain, moderate (4-7) Last Admin: 05/05/18 02:16 Dose: 2 mg Pantoprazole Sodium (Protonix Inj) 40 mg IVP DAILY [facility] Physical Exam - Constitutional Appears: Well, No Acute Distress - Head Exam Head Exam: ATRAUMATIC, NORMOCEPHALIC - Eye Exam Eye Exam: Normal appearance - ENT Exam ENT Exam: Mucous Membranes Moist, Normal Exam - Respiratory Exam Respiratory Exam: Clear to Auscultation Bilateral, NORMAL BREATHING PATTERN. absent: Rales, Rhonchi, Wheezes, Respiratory Distress - Cardiovascular Exam Cardiovascular Exam: REGULAR RHYTHM, +S1, +S2 - GI/Abdominal Exam GI & Abdominal Exam: Normal Bowel Sounds, Soft. absent: Organomegaly, Rebound, Rigid, Tenderness - Extremities Exam Extremities exam: Negative for: joint swelling, pedal edema - Neurological Exam Neurological exam: Alert, Oriented x3 - Psychiatric Exam Psychiatric exam: Normal Affect, Normal Mood - Skin Skin Exam: Dry, Intact, Normal Color, Warm Results - Vital Signs Recent Vital Signs: Last Vital Signs Temp 98.2 F 05/04/18 23:30 Pulse 86 05/04/18 23:30 Resp 14 05/04/18 23:33 BP 95/62 L 05/04/18 23:30 Pulse Ox 98 05/04/18 23:36 - Labs Result Diagrams: 05/05/18 05:30 05/05/18 05:30 Labs: Laboratory Results - last 24 hr 05/04/18 05/04/18 05/05/18 17:15 17:15 05:30 WBC 12.0 H 7.8 RBC 4.48 3.90 Hgb 12.0 10.7 L Hct 36.7 31.4 L MCV 82.1 D 80.5 L MCH 26.7 L 27.5 MCHC 32.6 L 34.2 RDW 14.1 13.8 Plt Count 203 185 MPV 11.7 Neut % (Auto) 71.8 Lymph % (Auto) 17.8 L Mclennan % (Auto) 8.8 Eos % (Auto) 1.3 Baso % (Auto) 0.3 Neut # (Auto) 8.6 H Lymph # (Auto) 2.1 Mclennan # (Auto) 1.1 H Eos # (Auto) 0.2 Baso # (Auto) 0.0 PT INR APTT Sodium 138 Potassium 3.9 Chloride 100 Carbon Dioxide 22 Anion Gap 20 BUN 12 Creatinine 0.6 L Est GFR ( Amer) > 60 Est GFR (Non-Af Amer) > 60 Random Glucose 79 Calcium 9.2 Total Bilirubin 0.6 AST 101 H D ALT 96 H D Alkaline Phosphatase 104 Total Protein 7.5 Albumin 4.0 Globulin 3.4 Albumin/Globulin Ratio 1.2 Triglycerides Cholesterol LDL Cholesterol Direct HDL Cholesterol Amylase Lipase 233 05/05/18 05/05/18 05:30 05:30 WBC RBC Hgb Hct MCV MCH MCHC RDW Plt Count MPV Neut % (Auto) Lymph % (Auto) Mclennan % (Auto) Eos % (Auto) Baso % (Auto) Neut # (Auto) Lymph # (Auto) Mclennan # (Auto) Eos # (Auto) Baso # (Auto) PT 12.2 INR 1.1 APTT 24.1 L Sodium 138 Potassium 3.2 L Chloride 104 Carbon Dioxide 25 Anion Gap 12 BUN 6 L Creatinine 0.5 L Est GFR ( Amer) > 60 Est GFR (Non-Af Amer) > 60 Random Glucose 123 H Calcium 8.2 L Total Bilirubin 0.4 AST 110 H ALT 115 H Alkaline Phosphatase 76 Total Protein 6.1 L Albumin 3.1 L D Globulin 3.0 Albumin/Globulin Ratio 1.0 Triglycerides 118 Cholesterol 117 LDL Cholesterol Direct 44 HDL Cholesterol 38 Amylase 59 Lipase 110 Assessment & Plan - Assessment and Plan (Free Text) Assessment: Martha Thompson is a 28F w/ hx of obesity who presented to the ER for abd pain Acute pancreatitis; etiology unknown, DDx: s/p bariatric surgery; r/o gallstonesm 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 Ríos <[email or web address] - Last Filed: 05/05/18 15:37> Meds - Medications Medications: Current Medications Dextrose/Sodium Chloride (Dextrose 5%/0.45% Ns 1000 Ml) 1,000 mls @ 100 mls/hr IV .Q10H [facility] Stop: 05/05/18 23:19 Last Admin: 05/05/18 11:17 Dose: 100 mls/hr Lactated Ringer's (Lactated Ringer's) 1,000 mls @ 250 mls/hr IV .Q4H [facility] Last Admin: 05/05/18 11:00 Dose: 250 mls/hr Morphine Sulfate (Morphine) 2 mg IVP Q4 PRN PRN Reason: Pain, moderate (4-7) Last Admin: 05/05/18 02:16 Dose: 2 mg Ondansetron HCl (Zofran Inj) 4 mg IVP Q6 PRN PRN Reason: Nausea/Vomiting Last Admin: 05/05/18 11:27 Dose: 4 mg Pantoprazole Sodium (Protonix Inj) 40 mg IVP DAILY [facility] Last Admin: 05/05/18 09:37 Dose: 40 mg Results - Vital Signs Recent Vital Signs: Last Vital Signs Temp 98 F 05/05/18 08:31 Pulse 96 H 05/05/18 08:31 Resp 20 05/05/18 08:31 BP 100/63 05/05/18 08:31 Pulse Ox 97 05/05/18 08:31 - Labs Result Diagrams: 05/05/18 05:30 05/05/18 05:30 Labs: Laboratory Results - last 24 hr 05/04/18 05/04/18 05/05/18 17:15 17:15 05:30 WBC 12.0 H 7.8 RBC 4.48 3.90 Hgb 12.0 10.7 L Hct 36.7 31.4 L MCV 82.1 D 80.5 L MCH 26.7 L 27.5 MCHC 32.6 L 34.2 RDW 14.1 13.8 Plt Count 203 185 MPV 11.7 Neut % (Auto) 71.8 Lymph % (Auto) 17.8 L Mclennan % (Auto) 8.8 Eos % (Auto) 1.3 Baso % (Auto) 0.3 Neut # (Auto) 8.6 H Lymph # (Auto) 2.1 Mclennan # (Auto) 1.1 H Eos # (Auto) 0.2 Baso # (Auto) 0.0 PT INR APTT Sodium 138 Potassium 3.9 Chloride 100 Carbon Dioxide 22 Anion Gap 20 BUN 12 Creatinine 0.6 L Est GFR ( Amer) > 60 Est GFR (Non-Af Amer) > 60 Random Glucose 79 Calcium 9.2 Total Bilirubin 0.6 AST 101 H D ALT 96 H D Alkaline Phosphatase 104 Total Protein 7.5 Albumin 4.0 Globulin 3.4 Albumin/Globulin Ratio 1.2 Triglycerides Cholesterol LDL Cholesterol Direct HDL Cholesterol Amylase Lipase 233 IgG 05/05/18 05/05/18 05/05/18 05:30 05:30 09:14 WBC RBC Hgb Hct MCV MCH MCHC RDW Plt Count MPV Neut % (Auto) Lymph % (Auto) Mclennan % (Auto) Eos % (Auto) Baso % (Auto) Neut # (Auto) Lymph # (Auto) Mclennan # (Auto) Eos # (Auto) Baso # (Auto) PT 12.2 INR 1.1 APTT 24.1 L Sodium 138 Potassium 3.2 L Chloride 104 Carbon Dioxide 25 Anion Gap 12 BUN 6 L Creatinine 0.5 L Est GFR ( Amer) > 60 Est GFR (Non-Af Amer) > 60 Random Glucose 123 H Calcium 8.2 L Total Bilirubin 0.4 AST 110 H ALT 115 H Alkaline Phosphatase 76 Total Protein 6.1 L Albumin 3.1 L D Globulin 3.0 Albumin/Globulin Ratio 1.0 Triglycerides 118 Cholesterol 117 LDL Cholesterol Direct 44 HDL Cholesterol 38 Amylase 59 Lipase 110 IgG 680.5 L Attending/Attestation - Attestation I have personally seen and examined this patient.: Yes I have fully participated in the care of the patient.: Yes I have reviewed all pertinent clinical information: Yes Notes (Text): 05/05/18 15:32 This is a 28 year old F with history of obesity s/p bariatric surgery two weeks ago with gastric sleeve who presented to the ER for abdominal pain and found to have acute pancreatitis. On D5 100 cc/hr IVf which will be changed to RL 250 cc/ hr. No gallstones on sonogram. Start clear liquid diet today and DVt prophylaxis. Needs to follow with bariatric surgeon once discharged. CT reviewed. Low fat diet as tolerated. Follow triglyceride levels.
--- NOTE | 2018-05-05 09:42 | CT ---
PROCEDURE: CT Abdomen and Pelvis without contrast. HISTORY: left sided pain, gastric sleeve 04/20 COMPARISON: None. TECHNIQUE: Contiguous axial images of the abdomen and pelvis. No IV or oral contrast given. Coronal and Sagittal reformats generated. Please note that due to lack of intravenous and oral contrast, evaluation of soft tissue structures and bowel is limited. Radiation dose: Total exam DLP = 943.16 mGy-cm. This CT exam was performed using one or more of the following dose reduction techniques: Automated exposure control, adjustment of the mA and/or kV according to patient size, and/or use of iterative reconstruction technique. FINDINGS: LOWER THORAX: 3 millimeter nodule in the left lower lobe (image 4, series 2. LIVER: Grossly unremarkable on this noncontrast CT. GALLBLADDER AND BILE DUCTS: Unremarkable. PANCREAS: Soft tissue stranding surrounding the pancreatic tail. Underlying pancreatitis/ pancreatic inflammation cannot be entirely excluded. SPLEEN: Mild splenomegaly. ADRENALS: Unremarkable. KIDNEYS AND URETERS: Unremarkable. No stone or hydronephrosis. BLADDER: Limited evaluation due to underdistention. REPRODUCTIVE: Please note that evaluation of gynecologic organs is not optimal on CT imaging. APPENDIX: Unremarkable. BOWEL: No bowel obstruction. Mild thickening of the stomach antrum could be due to underdistention. Surgical clips surrounding the greater curvature of the stomach noted. PERITONEUM: Foci of free air is noted in the peritoneum. LYMPH NODES: Unremarkable. No enlarged lymph nodes. VASCULATURE: Unremarkable. No aortic aneurysm. BONES: No fracture or destructive lesion. OTHER FINDINGS: None. IMPRESSION: Foci of free air noted in the peritoneum. This is of unclear etiology. Based on my conversation with the gastroenterology fellow, patient underwent gastric sleeve surgery approximately 10 days ago Possible pancreatic inflammation particularly surrounding the tail. No localized fluid collection identified. Correlation with amylase and lipase levels requested. Please note that this report is discordant with preliminary report. Discussed with Dr. Joe Khan at approximately 9:40 a.m. on 05/05/2018.
[2018-05-05] MEDS: Lactated Ringer's 1,000 ML IV SCH ×4 (11:00→23:56)
[2018-05-05] MEDS: Dextrose 5%/0.45% NS 1,000 ML IV SCH ×3 (11:17→19:39)
--- NOTE | 2018-05-05 11:29 | US ---
HISTORY: eval for cholelithiasis or CBD stone COMPARISON: None. TECHNIQUE: Limited sonographic evaluation of the abdomen. FINDINGS: LIVER: Measures 13 cm. Normal echogenicity of the liver parenchyma. No mass. No intrahepatic bile duct dilatation. GALLBLADDER: The gallbladder is not abnormally distended. The gallbladder wall is within normal limits. No shadowing or echogenic calculus identified. No pericholecystic fluid. According to the technologist, the sonographic Guevara's sign was not present. COMMON BILE DUCT: Measures 3 mm. No stones. No dilatation. PANCREAS: Mildly prominent pancreas. RIGHT KIDNEY: Measures 11 x 4.3 x 3.4cm. Normal echogenicity. No calculus, mass, or hydronephrosis. LEFT KIDNEY: Not imaged. SPLEEN: Not imaged. AORTA: No aneurysmal dilatation within the visualized segments of the aorta. IVC: The visualized portions of the IVC appear unremarkable. OTHER FINDINGS: The visualized segments of the portal vein appear patent. IMPRESSION: No evidence of cholelithiasis. Prominent pancreas. Limited evaluation.
--- NOTE | 2018-05-05 14:52 | CP.PCM.HP ---
History of Present Illness - History of Present Illness History of Present Illness: CC: Abdominal pain. 28 y/o F, Hx of Morbid obese with recent gastric sleeve surgery on 04/20/18, referred to [facility] by the Surgeon to be evaluated for Abdominal pain more prominent at the LUQ, epigastric, onset a week [employer], gradually increasing intensity to severe of 10:10 on DOA, pain was constant, dull, associated to tenderness in LUQ and radiated to mid back and left lower back. Pt had Tylenol while at home with no relief. Worsening symptoms: CT abdomen + for Acute Pancreatitis. Aggravated factor: ADL's Pt denied: Fever, chills, n/v/d, urinary symptoms, ETOH, CP, palpitations, dizziness, syncope, SOB, cough, sick contact, recent travel out of [place]. Abd U-S: Prominent Pancrea. Present on Admission - Present on Admission Any Indicators Present on Admission: No Review of Systems - Constitutional Constitutional: As Per HPI - EENT Eyes: Other (negative) Ears: Other (negative) - Cardiovascular Cardiovascular: Other (negative) - Respiratory Respiratory: Other (negative) - Gastrointestinal Gastrointestinal: Abdominal Pain (LUQ) - Genitourinary Genitourinary: Other (negative) - Musculoskeletal Musculoskeletal: Back Pain - Integumentary Integumentary: Other (negative) - Neurological Neurological: Other (negative) - Psychiatric Psychiatric: Other (negative) - Endocrine Endocrine: Other (negative) - Hematologic/Lymphatic Hematologic: Other (negative) Past Patient History - Past Medical History & Family History Past Medical History?: Yes Pertinent Family History: Father Colon Ca - Past Social History Smoking Status: Never Smoked Alcohol: None Drugs: Denies Home Situation {Lives}: Alone - CARDIAC Hx Cardiac Disorders: No - PULMONARY Hx Respiratory Disorders: Yes Hx Asthma: Yes - NEUROLOGICAL Hx Neurological Disorder: No - HEENT Hx HEENT Problems: No - RENAL Hx Chronic Kidney Disease: No - ENDOCRINE/METABOLIC Hx Endocrine Disorders: No - HEMATOLOGICAL/ONCOLOGICAL Hx Blood Disorders: Yes Hx Anemia: Yes - INTEGUMENTARY Hx Dermatological Problems: No - MUSCULOSKELETAL/RHEUMATOLOGICAL Hx Musculoskeletal Disorders: Yes (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 [facility] Dr. Aram Lopez - GENITOURINARY/GYNECOLOGICAL Hx Genitourinary Disorders: No - PSYCHIATRIC Hx Psychophysiologic Disorder: Yes Hx Anxiety: Yes Hx Substance Use: No - SURGICAL HISTORY Hx Surgeries: Yes Hx Tonsillectomy: Yes - ANESTHESIA Hx Anesthesia: Yes Hx Anesthesia Reactions: No Hx Malignant Hyperthermia: No Meds Allergies/Adverse Reactions: Allergies Allergy/AdvReac Type Severity Reaction Status Date / Time Iodinated Contrast- Oral and Allergy RASH Verified 05/04/18 16:18 IV Dye Physical Exam - Constitutional Appears: No Acute Distress - Head Exam Head Exam: NORMAL INSPECTION - Eye Exam Eye Exam: PERRL - ENT Exam ENT Exam: Mucous Membranes Moist - Neck Exam Neck exam: Positive for: Normal Inspection - Respiratory Exam Respiratory Exam: Clear to Auscultation Bilateral - Cardiovascular Exam Cardiovascular Exam: REGULAR RHYTHM - GI/Abdominal Exam GI & Abdominal Exam: Normal Bowel Sounds, Soft, Tenderness (mild on palpation) - Extremities Exam Extremities exam: Positive for: normal inspection - Neurological Exam Neurological exam: Alert, Oriented x3 - Psychiatric Exam Psychiatric exam: Normal Mood - Skin Skin Exam: Warm Results - Vital Signs Recent Vital Signs: Last Vital Signs Temp 98 F 05/05/18 08:31 Pulse 96 H 05/05/18 08:31 Resp 20 05/05/18 08:31 BP 100/63 05/05/18 08:31 Pulse Ox 97 05/05/18 08:31 reviewed Cameron - Labs Result Diagrams: 05/05/18 05:30 05/05/18 05:30 Labs: Laboratory Results - last 24 hr 05/04/18 05/04/18 05/05/18 17:15 17:15 05:30 WBC 12.0 H 7.8 RBC 4.48 3.90 Hgb 12.0 10.7 L Hct 36.7 31.4 L MCV 82.1 D 80.5 L MCH 26.7 L 27.5 MCHC 32.6 L 34.2 RDW 14.1 13.8 Plt Count 203 185 MPV 11.7 Neut % (Auto) 71.8 Lymph % (Auto) 17.8 L [place] % (Auto) 8.8 Eos % (Auto) 1.3 Baso % (Auto) 0.3 Neut # (Auto) 8.6 H Lymph # (Auto) 2.1 [place] # (Auto) 1.1 H Eos # (Auto) 0.2 Baso # (Auto) 0.0 PT INR APTT Sodium 138 Potassium 3.9 Chloride 100 Carbon Dioxide 22 Anion Gap 20 BUN 12 Creatinine 0.6 L Est GFR ( Amer) > 60 Est GFR (Non-Af Amer) > 60 Random Glucose 79 Calcium 9.2 Total Bilirubin 0.6 AST 101 H D ALT 96 H D Alkaline Phosphatase 104 Total Protein 7.5 Albumin 4.0 Globulin 3.4 Albumin/Globulin Ratio 1.2 Triglycerides Cholesterol LDL Cholesterol Direct HDL Cholesterol Amylase Lipase 233 05/05/18 05/05/18 05:30 05:30 WBC RBC Hgb Hct MCV MCH MCHC RDW Plt Count MPV Neut % (Auto) Lymph % (Auto) [place] % (Auto) Eos % (Auto) Baso % (Auto) Neut # (Auto) Lymph # (Auto) [place] # (Auto) Eos # (Auto) Baso # (Auto) PT 12.2 INR 1.1 APTT 24.1 L Sodium 138 Potassium 3.2 L Chloride 104 Carbon Dioxide 25 Anion Gap 12 BUN 6 L Creatinine 0.5 L Est GFR ( Amer) > 60 Est GFR (Non-Af Amer) > 60 Random Glucose 123 H Calcium 8.2 L Total Bilirubin 0.4 AST 110 H ALT 115 H Alkaline Phosphatase 76 Total Protein 6.1 L Albumin 3.1 L D Globulin 3.0 Albumin/Globulin Ratio 1.0 Triglycerides 118 Cholesterol 117 LDL Cholesterol Direct 44 HDL Cholesterol 38 Amylase 59 Lipase 110 reviewed J.P. - Imaging and Cardiology US - abdomen Status: Report reviewed by me (J.P.) CT scan - abdomen Status: Report reviewed by me (J.P.) CT scan - pelvis Status: Report reviewed by me (J.P.) Assessment & Plan (1) Abdominal pain Status: Acute Priority: High (2) Acute pancreatitis Status: Acute Priority: High - Assessment and Plan (Free Text) Plan: Continue Low fat diet as tolerate, Morphine, Protonix and rest of Tx. GI consult appreciated. - Date & Time Date: 05/05/18 Time: 11:40
[2018-05-05 15:48] LABS: HEPATITIS B SURFACE AG Negative (NEGATIVE)
[2018-05-05 15:54] LABS: HEPATITIS A IGM NEGATIVE (NEGATIVE); HEPATITIS B CORE AB NEGATIVE (NEGATIVE)
[2018-05-05 16:06] LABS: HEPATITIS C ANTIBODY NEGATIVE (NEGATIVE)
[2018-05-06 04:56] LABS: SQUAMOUS EPITHIAL < 1 /hpf (0-5); URINE BACTERIA RARE (<OCC); URINE BILIRUBIN NEGATIVE (NEGATIVE); URINE BLOOD NEGATIVE (NEGATIVE); URINE CLARITY CLEAR (Clear); URINE COLOR YELLOW (YELLOW); URINE GLUCOSE (UA) NEG (Normal); URINE LEUKOCYTE ESTERASE NEG Leu/uL (Negative); URINE PROTEIN NEGATIVE (NEGATIVE); URINE UROBILINOGEN 0.2-1.0 mg/dL (0.2-1.0)
[2018-05-06] MEDS: Lactated Ringer's 1,000 ML IV SCH ×2 (06:13→10:14)
--- NOTE | 2018-05-06 08:06 | CP.PCM.PN ---
<Joe Khan - Last Filed: 05/06/18 08:10> Subjective - Date & Time of Evaluation Date of Evaluation: 05/06/18 Time of Evaluation: 07:00 - Subjective Subjective: PGY5 GI Follow-up note Currently denies any abd pain seen and examined bedside Denies any BM tolerated purreed last night, with very little discomfort denies any nausea and vomiting ROS: 12 point ROS conducted, neg other than above Objective - Vital Signs/Intake and Output Vital Signs (last 24 hours): Temp Pulse Resp BP Pulse Ox 98.1 F 74 19 105/66 98 05/06/18 00:11 05/06/18 00:11 05/06/18 00:11 05/06/18 00:11 05/06/18 00:11 - Medications Medications: Current Medications Lactated Ringer's (Lactated Ringer's) 1,000 mls @ 250 mls/hr IV .Q4H [facility] Last Admin: 05/06/18 06:13 Dose: 250 mls/hr Morphine Sulfate (Morphine) 2 mg IVP Q4 PRN PRN Reason: Pain, moderate (4-7) Last Admin: 05/06/18 00:08 Dose: 2 mg Ondansetron HCl (Zofran Inj) 4 mg IVP Q6 PRN PRN Reason: Nausea/Vomiting Last Admin: 05/06/18 00:07 Dose: 4 mg Pantoprazole Sodium (Protonix Inj) 40 mg IVP DAILY [facility] Last Admin: 05/05/18 09:37 Dose: 40 mg - Labs Labs: 05/05/18 05:30 05/05/18 05:30 PT 12.2 Seconds (9.8-13.1) 05/05/18 05:30 INR 1.1 (0.9-1.2) 05/05/18 05:30 APTT 24.1 Seconds (25.6-37.1) L 05/05/18 05:30 - Constitutional Appears: Well, No Acute Distress - Head Exam Head Exam: ATRAUMATIC, NORMOCEPHALIC - Eye Exam Eye Exam: Normal appearance - ENT Exam ENT Exam: Mucous Membranes Moist, Normal Exam - Neck Exam Neck Exam: Normal Inspection - Respiratory Exam Respiratory Exam: Clear to Ausculation Bilateral, NORMAL BREATHING PATTERN. absent: Rales, Rhonchi, Wheezes, Respiratory Distress - Cardiovascular Exam Cardiovascular Exam: REGULAR RHYTHM, +S1, +S2 - GI/Abdominal Exam GI & Abdominal Exam: Soft, Normal Bowel Sounds. absent: Distended, Firm, Guarding, Rigid, Tenderness, Organomegaly - Extremities Exam Extremities Exam: absent: Joint Swelling, Pedal Edema - Neurological Exam Neurological Exam: Alert, Awake, Oriented x3 - Psychiatric Exam Psychiatric exam: Normal Affect, Normal Mood - Skin Skin Exam: Dry, Intact, Normal Color, Warm Assessment and Plan - Assessment and Plan (Free Text) Assessment: Martha Thompson is a 28F w/ hx of obesity who presented to the ER for abd pain Acute pancreatitis. improving. etiology unknown: s/p gastric sleeve vs idiopathic obesity s/p gastric sleeve Elevate Transaminases, etiology likely 2/2 NAFLD, r/o autoimmune; viral hep neg Plan: -decrease IV fluids to 150ml/hr -continue pureed diet -IGG4 for autoimmune pancreatitis pending -advise to follow-up with Outpt GI -pain control as per primary team -if continues to tolerate diet, without abd pain, nausea and vomiting; can be discharged from GI standpoint will D/W Dr. Ríos <Greer Ríos - Last Filed: 05/06/18 14:33> Objective - Vital Signs/Intake and Output Vital Signs (last 24 hours): Temp Pulse Resp BP Pulse Ox 98 F 81 18 90/51 L 99 05/06/18 08:20 05/06/18 08:20 05/06/18 08:20 05/06/18 08:20 05/06/18 08:20 - Medications Medications: Current Medications Lactated Ringer's (Lactated Ringer's) 1,000 mls @ 250 mls/hr IV .Q4H [facility] Last Admin: 05/06/18 10:14 Dose: 250 mls/hr Morphine Sulfate (Morphine) 2 mg IVP Q4 PRN PRN Reason: Pain, moderate (4-7) Last Admin: 05/06/18 00:08 Dose: 2 mg Ondansetron HCl (Zofran Inj) 4 mg IVP Q6 PRN PRN Reason: Nausea/Vomiting Last Admin: 05/06/18 00:07 Dose: 4 mg Pantoprazole Sodium (Protonix Inj) 40 mg IVP DAILY [facility] Last Admin: 05/06/18 10:16 Dose: 40 mg - Labs Labs: 05/06/18 11:11 05/06/18 11:11 PT 12.2 Seconds (9.8-13.1) 05/05/18 05:30 INR 1.1 (0.9-1.2) 05/05/18 05:30 APTT 24.1 Seconds (25.6-37.1) L 05/05/18 05:30 Attending/Attestation - Attestation I have personally seen and examined this patient.: Yes I have fully participated in the care of the patient.: Yes I have reviewed all pertinent clinical information, including history, physical exam and plan: Yes Notes (Text): 05/06/18 14:31 Patient seen at bedside this am. No complains. Very comfortable. This is a 28 year old F with history of obesity s/p bariatric surgery two weeks ago with gastric sleeve who presented to the ER for abdominal pain and found to have acute pancreatitis. On RL 250 cc/hr with no abdominal pain or change in bowel habits. No gallstones on sonogram. Normal TG. Transminases elevated likely due to NAFLD. diet as tolerated. Needs to follow with bariatric surgeon once discharged. CT reviewed. Low fat diet as tolerated. No further GI intervention. thank you for letting us participate in the care of your patient
[2018-05-06 08:20] VITALS: BP 90/51; PULSE 81; RESP 18; TEMP 98; O2SAT 99
[2018-05-06 11:24] LABS: HEMOGLOBIN 11.4 g/dL (12.0-16.0); MEAN CORPUSCULAR HEMOGLOBIN 27.6 pg (27.0-31.0); RBC 4.15 Mil/uL (3.80-5.20); WHITE BLOOD COUNT 7.8 K/uL (4.8-10.8)
[2018-05-06 11:33] LABS: ALB/GLOB RATIO 1.1 (1.0-2.1); ALBUMIN 3.2 g/dL (3.5-5.0); ALT/SGPT 155 U/L (9-52); AST/SGOT 120 U/L (14-36); BLOOD UREA NITROGEN 2 mg/dl (7-17); CALCIUM 8.7 mg/dL (8.4-10.2); GFR AFRICAN-AMERICAN > 60; GFR NON-AFRICAN AMERICAN > 60
--- NOTE | 2018-05-06 17:39 | CP.PCM.DIS ---
Provider - Provider Date of Admission: 05/04/18 21:35 Attending physician: Luther Goodrich MD Diagnosis - Discharge Diagnosis (1) Abdominal pain Status: Acute Priority: High (2) Acute pancreatitis Status: Acute Priority: High Hospital Course - Lab Results Lab Results: Most Recent Lab Values WBC 7.8 K/uL (4.8-10.8) 05/06/18 11:11 RBC 4.15 Mil/uL (3.80-5.20) 05/06/18 11:11 Hgb 11.4 g/dL (12.0-16.0) L 05/06/18 11:11 Hct 33.6 % (34.0-47.0) L 05/06/18 11:11 MCV 81.0 fl (81.0-99.0) 05/06/18 11:11 MCH 27.6 pg (27.0-31.0) 05/06/18 11:11 MCHC 34.0 g/dL (33.0-37.0) 05/06/18 11:11 RDW 14.0 % (11.5-14.5) 05/06/18 11:11 Plt Count 229 K/uL (130-400) 05/06/18 11:11 MPV 11.7 fl (7.2-11.7) 05/04/18 17:15 Neut % (Auto) 71.8 % (50.0-75.0) 05/04/18 17:15 Lymph % (Auto) 17.8 % (20.0-40.0) L 05/04/18 17:15 [place] % (Auto) 8.8 % (0.0-10.0) 05/04/18 17:15 Eos % (Auto) 1.3 % (0.0-4.0) 05/04/18 17:15 Baso % (Auto) 0.3 % (0.0-2.0) 05/04/18 17:15 Neut # (Auto) 8.6 K/uL (1.8-7.0) H 05/04/18 17:15 Lymph # (Auto) 2.1 K/uL (1.0-4.3) 05/04/18 17:15 [place] # (Auto) 1.1 K/uL (0.0-0.8) H 05/04/18 17:15 Eos # (Auto) 0.2 K/uL (0.0-0.7) 05/04/18 17:15 Baso # (Auto) 0.0 K/uL (0.0-0.2) 05/04/18 17:15 PT 12.2 Seconds (9.8-13.1) 05/05/18 05:30 INR 1.1 (0.9-1.2) 05/05/18 05:30 APTT 24.1 Seconds (25.6-37.1) L 05/05/18 05:30 Sodium 141 mmol/l (132-148) 05/06/18 11:11 Potassium 3.7 MMOL/L (3.6-5.0) 05/06/18 11:11 Chloride 102 mmol/L (98-107) 05/06/18 11:11 Carbon Dioxide 30 mmol/L (22-30) 05/06/18 11:11 Anion Gap 13 (10-20) 05/06/18 11:11 BUN 2 mg/dl (7-17) L 05/06/18 11:11 Creatinine 0.5 mg/dl (0.7-1.2) L 05/06/18 11:11 Est GFR ( Amer) > 60 05/06/18 11:11 Est GFR (Non-Af Amer) > 60 05/06/18 11:11 Random Glucose 109 mg/dL (65-105) H 05/06/18 11:11 Calcium 8.7 mg/dL (8.4-10.2) 05/06/18 11:11 Total Bilirubin 0.3 mg/dl (0.2-1.3) 05/06/18 11:11 AST 120 U/L (14-36) H 05/06/18 11:11 ALT 155 U/L (9-52) H D 05/06/18 11:11 Alkaline Phosphatase 78 U/L (38-126) 05/06/18 11:11 Total Protein 6.0 G/DL (6.3-8.2) L 05/06/18 11:11 Albumin 3.2 g/dL (3.5-5.0) L 05/06/18 11:11 Globulin 2.8 gm/dL (2.2-3.9) 05/06/18 11:11 Albumin/Globulin Ratio 1.1 (1.0-2.1) 05/06/18 11:11 Triglycerides 118 mg/DL (0-149) 05/05/18 05:30 Cholesterol 117 mg/dL (0-199) 05/05/18 05:30 LDL Cholesterol Direct 44 mg/dL (0-129) 05/05/18 05:30 HDL Cholesterol 38 MG/DL (30-70) 05/05/18 05:30 Amylase 59 U/L (30-110) 05/05/18 05:30 Lipase 110 U/L (23-300) 05/05/18 05:30 Urine Color Yellow (YELLOW) 05/05/18 18:35 Urine Clarity Clear (Clear) 05/05/18 18:35 Urine pH 6.0 (5.0-8.0) 05/05/18 18:35 Ur Specific [place] 1.006 (1.003-1.030) 05/05/18 18:35 Urine Protein Negative mg/dL (NEGATIVE) 05/05/18 18:35 Urine Glucose (UA) Neg mg/dL (Normal) 05/05/18 18:35 Urine Ketones 20 mg/dL (NEGATIVE) 05/05/18 18:35 Urine Blood Negative (NEGATIVE) 05/05/18 18:35 Urine Nitrate Negative (NEGATIVE) 05/05/18 18:35 Urine Bilirubin Negative (NEGATIVE) 05/05/18 18:35 Urine Urobilinogen 0.2-1.0 mg/dL (0.2-1.0) 05/05/18 18:35 Ur Leukocyte Esterase Neg [place]/uL (Negative) 05/05/18 18:35 Urine RBC (Auto) 3 /hpf (0-3) 05/05/18 18:35 Urine Microscopic WBC 1 /hpf (0-5) 05/05/18 18:35 Ur Squamous Epith Cells < 1 /hpf (0-5) 05/05/18 18:35 Urine Bacteria Rare (<OCC) 05/05/18 18:35 IgG 680.5 mg/dL (700.0-1600.0) L 05/05/18 09:14 Anti-Mitochondrial Ab Negative (Negative) 05/05/18 11:01 Anti-Smooth Muscle Ab Negative (Negative) 05/05/18 11:01 Hepatitis A IgM Ab Negative (NEGATIVE) 05/05/18 09:14 Hep Bs Antigen Negative (NEGATIVE) 05/05/18 09:14 Hep B Core IgM Ab Negative (NEGATIVE) 05/05/18 09:14 Hepatitis C Antibody Negative (NEGATIVE) 05/05/18 09:14 Discharge Exam - Head Exam Head Exam: ATRAUMATIC, NORMOCEPHALIC Discharge Plan - Follow Up Plan Condition: STABLE Disposition: HOME/ ROUTINE Instructions: Pancreatitis (DC) Additional Instructions: follow up with primary MD and Dr Ríos in 1 week Referrals: Shaik Hammer MD [Family Provider] - Greer Ríos MD [Medical Doctor] -
== END 2018-05-06 15:30 | disposition home or self-care (01) | DRG 204 ==
LOC: H.ER 16:04 → H.ERHOLD 21:35 → H.MEDSURG1 23:04
PROVIDERS: ADMIT Internal Medicine Pulmonary Disease; ATTEND Internal Medicine Pulmonary Disease
DX: K85.90 Acute pancreatitis without necrosis or infection, unspecified (principal); K21.9 Gastro-esophageal reflux disease without esophagitis; J45.909 Unspecified asthma, uncomplicated; Z98.84 Bariatric surgery status; E66.01 Morbid (severe) obesity due to excess calories; F41.9 Anxiety disorder, unspecified; Z91.041 Radiographic dye allergy status

== ENCOUNTER 2019-01-30 14:09 | Emergency (ER) | payer MEDICAID ==
[2019-01-30 14:09] VITALS: BMI 33.6
[2019-01-30] MEDS ORDERED: Sodium Chloride 0.9% 1,000 ML IV STA (14:31)
--- NOTE | 2019-01-30 14:34 | ED PDOC ---
HPI: Abdomen Time Seen by Provider: 01/30/19 14:26 Chief Complaint (Nursing): Abdominal Pain History Per: Patient (states that she has been having vomiting and diarrhea since yesterday. Has not been able to tolerate any food, including liquids. States that she also has had severe abd pain when she was vomiting. She been sick with laryngitis and bronchitis and has been treated with an antibiotic and prednisone by her PMD. ) Past Medical History Reviewed: Historical Data, Nursing Documentation, Vital Signs Vital Signs: Last Vital Signs Temp 98.0 F 01/30/19 14:11 Pulse 95 H 01/30/19 14:11 Resp 18 01/30/19 14:11 BP 100/65 01/30/19 14:11 Pulse Ox 99 01/30/19 14:11 - Medical History PMH: Anemia, Anxiety, Asthma Denies: Chronic Kidney Disease - Surgical History Surgical History: Tonsillectomy Other surgeries: lipoma removal; knee surgery - Family History Family History: States: Unknown Family Hx - Immunization History Hx Tetanus Toxoid Vaccination: No Hx Influenza Vaccination: No Hx Pneumococcal Vaccination: No - Home Medications Home Medications: Ambulatory Orders Medication Instructions Recorded Birthcontrol Pills 1 tab PO DAILY 07/21/16 - Allergies Allergies/Adverse Reactions: Allergies Allergy/AdvReac Type Severity Reaction Status Date / Time Iodinated Contrast- Oral and Allergy RASH Verified 05/04/18 16:18 IV Dye Review of Systems ROS Statement: Except As Marked, All Systems Reviewed And Found Negative Constitutional: Negative for: Fever, Chills Cardiovascular: Negative for: Chest Pain Respiratory: Positive for: Cough. Negative for: Shortness of Breath, Hemoptysis Gastrointestinal: Positive for: Nausea, Vomiting, Abdominal Pain, Diarrhea Genitourinary Female: Negative for: Dysuria Physical Exam - Reviewed Nursing Documentation Reviewed: Yes Vital Signs Reviewed: Yes - Physical Exam Appears: Positive for: Well, Non-toxic, No Acute Distress Head Exam: Positive for: ATRAUMATIC, NORMAL INSPECTION, NORMOCEPHALIC Skin: Positive for: Normal Color, Warm, DRY Eye Exam: Positive for: EOMI, Normal appearance, PERRL ENT: Positive for: Normal ENT Inspection Neck: Positive for: Normal, Painless ROM Cardiovascular/Chest: Positive for: Regular Rate, Rhythm Respiratory: Positive for: CNT, Normal Breath Sounds Gastrointestinal/Abdominal: Positive for: Normal Exam, Soft Back: Positive for: Normal Inspection Extremity: Positive for: Normal ROM Neurological/Psych: Positive for: Awake, Alert, Normal Tone - ECG O2 Sat by Pulse Oximetry: 99 Disposition - Clinical Impression Clinical Impression: Gastroenteritis - Patient ED Disposition Is Patient to be Admitted: Transfer of Care Counseled Patient/Family Regarding: Smoking Cessation - Disposition Disposition: Transfer of Care Disposition Time: 14:37 Condition: STABLE Patient Signed Over To: Sabiha Castillo Present On Arrival: None
[2019-01-30 15:01] LABS: ALB/GLOB RATIO 1.3 (1.0-2.1); ALBUMIN 3.5 g/dL (3.5-5.0); ALT/SGPT 36 U/L (9-52); AST/SGOT 27 U/L (14-36); BLOOD UREA NITROGEN 16 mg/dl (7-17); CALCIUM 8.3 mg/dL (8.4-10.2); GFR NON-AFRICAN AMERICAN > 60
[2019-01-30 15:07] LABS: BASO % 0.4 % (0.0-2.0); EOS # 0.1 K/uL (0.0-0.7); EOS % 1.7 % (0.0-4.0); HEMOGLOBIN 12.6 g/dL (12.0-16.0); LYMPH # 1.3 K/uL (1.0-4.3); LYMPH % 29.8 % (20.0-40.0); MEAN CELL VOLUME 86.1 fl (81.0-99.0); MEAN CORPUSCULAR HGB CONC 32.5 g/dL (33.0-37.0); MEAN PLATELET VOLUME 10.7 fl (7.2-11.7); MONO # 0.5 K/uL (0.0-0.8); MONO % 10.2 % (0.0-10.0); NEUT # 2.6 K/uL (1.8-7.0); NEUT % 57.9 % (50.0-75.0); NRBC % 0.1 % (0.0-0.0); RBC 4.48 Mil/uL (3.80-5.20); RED CELL DISTRIBUTION WIDTH 14.7 % (11.5-14.5); WHITE BLOOD COUNT 4.4 K/uL (4.8-10.8)
[2019-01-30] MEDS ORDERED: Potassium Chloride 20 mEq ER Tab PO STA (15:16)
--- NOTE | 2019-01-30 15:27 | ED PDOC ---
- Laboratory Results Result Diagrams: 01/30/19 14:47 01/30/19 14:47 Lab Results: Total Bilirubin 0.5 mg/dl (0.2-1.3) 01/30/19 14:47 AST 27 U/L (14-36) 01/30/19 14:47 ALT 36 U/L (9-52) 01/30/19 14:47 Alkaline Phosphatase 61 U/L (38-126) 01/30/19 14:47 Total Protein 6.1 G/DL (6.3-8.2) L 01/30/19 14:47 Albumin 3.5 g/dL (3.5-5.0) 01/30/19 14:47 Globulin 2.6 gm/dL (2.2-3.9) 01/30/19 14:47 Albumin/Globulin Ratio 1.3 (1.0-2.1) 01/30/19 14:47 - ECG O2 Sat by Pulse Oximetry: 99 (RA) Pulse Ox Interpretation: Normal Medical Decision Making Medical Decision Making: Time: 1500 -- Patient endorsed to me by Dr. Gregorio, pending labs, re-assessment and final ER disposition. Time: 1525 -- Labs reviewed and demonstrate patient with mild leukopenia and hypokalemia. Potassium Supplementation ordered. -- Potassium Chloride 40 meq PO 17:09 On re-evaluation, patient continues to feel nauseous and then vomited, despite receiving Pepcid, Zofran and IV fluids. Discussed findings with patient and will administer additional anti-emetics. Change potassium delivery to IV. --Reglan 10 mg IVP --Potassium 40 meq IV --Benadryl 25 mg PO Scribe Attestation: Documented by Haydee Kirby, acting as a scribe Emilia Castillo MD. Provider Scribe Attestation: All medical record entries made by the Scribe were at my direction and personally dictated by me. I have reviewed the chart and agree that the record accurately reflects my personal performance of the history, physical exam, medical decision making, and the department course for this patient. I have also personally directed, reviewed, and agree with the discharge instructions and disposition. Disposition Counseled Patient/Family Regarding: Studies Performed, Diagnosis, Need For Followup, Rx Given - Clinical Impression Clinical Impression: Gastroenteritis - POA Present On Arrival: None - Disposition Disposition: Routine/Home Disposition Time: 21:58 Condition: IMPROVED Prescriptions: Dicyclomine [Bentyl] 20 mg PO QID PRN #20 tab PRN Reason: abdominal pain Ondansetron ODT [Zofran ODT] 1 odt PO Q6 PRN #20 odt PRN Reason: Nausea/Vomiting Saccharomyces Boulardi [Florastor] 500 mg PO BID #28 cap Instructions: Gastroenteritis (ED) Forms: [facility] ED School/Work Excuse
[2019-01-30] MEDS ORDERED: Dextrose 5%/Lactated Ringer's 1,000 ML IV SCH (16:00)
[2019-01-30] MEDS ORDERED: DiphenhydrAMINE 50 mg/ml Inj IVP STA (16:01)
[2019-01-30] MEDS ORDERED: Potassium CL 10mEq/100ml 100 ML IVPB STA (16:02)
[2019-01-30] MEDS ORDERED: Potassium CL 10 MEQ/50 ML 50 ML IVPB STA (16:23)
[2019-01-30] MEDS ORDERED: Potassium CL 10 MEQ/50 ML 50 ML ONE (16:39)
[2019-01-30 19:17] VITALS: RESP 16
[2019-01-30 22:46] VITALS: BP 110/70; PULSE 70; TEMP 98.5; O2SAT 98
== END 2019-01-30 22:29 | disposition home or self-care (01) ==
LOC: H.ER 14:09
DX: K52.9 Noninfective gastroenteritis and colitis, unspecified (principal)
CPT/HCPCS: 80053; 81025; 85025; 96361; 96374; 96375; 99285; J1200; J2405; J2765; J3480; J7030; J7120